=== PATIENT | male | born 1930 | race Caucasian/White ===

== ENCOUNTER 2021-04-10 07:58 | Observation (INO) | payer MEDICARE ==
[~2021-04-10] VITALS: Ht 175.3 cm; Wt 96.0 kg
[~2021-04-10 07:58] MED LIST: FLEXERIL PO; PERCOCET 5/321 COMBO PO
[2021-04-10 08:27] LABS: HEMATOCRIT 31.5 % (39.0-50.0); HEMOGLOBIN 10.5 g/dl (14.0-18.0); IMMATURE GRANULOCYTES 0.3 % (0.0-5.0); MEAN CELL VOLUME 99.4 fL CALC (80.0-100.0); MEAN CORPUSCULAR HGB 33.1 pG CALC (26.0-32.0); MEAN CORPUSCULAR HGB CONC 33.3 g/dL CAL (32.0-36.0); NEUT# 4.84 thou/uL (1.82-7.42); RED BLOOD COUNT 3.17 mill/uL (4.70-6.10); RED CELL DISTRI WIDTH 14.7 % (11.5-15.5)
[2021-04-10 08:40] LABS: ALBUMIN 3.8 g/dL (3.2-5.0); ALKALINE PHOSPHATASE 85 u/l (38-126); BILIRUBIN, TOTAL 1.3 mg/dL (0.0-1.4); BUN 24 mg/dL (8-23); BUN/CREATININE RATIO 37 (12-20 (CALC)); CHLORIDE 109 mmol/l (95-108); CREATININE 0.6 mg/dL (0.7-1.3); GFR > 60 ML/MIN (>=60 (CALC)); GFR FOR AFR.AMER. > 60 ML/MIN (>=60 (CALC)); MAGNESIUM 2.1 mg/dL (1.6-2.3); POTASSIUM 3.3 mmol/l (3.5-5.1); SGOT/AST 40 u/l (19-48); SODIUM 142 mmol/l (137-146); TOTAL PROTEIN 7.2 g/dL (6.3-8.2)
[2021-04-10 08:41] LABS: ANION GAP 13 (6-22 (CALC)); CARBON DIOXIDE 23 mmol/l (22-30)
[2021-04-10 09:00] LABS: INTERNATIONAL NORMALIZED RATIO 2.7 RATIO (0.7-1.3); PROTHROMBIN TIME 26.4 SECONDS (9.0-12.5)
[2021-04-10 09:34] LABS: URINE BILIRUBIN - DIPSTICK NEGATIVE (NEGATIVE); URINE BLOOD DIPSTICK NEGATIVE (NEGATIVE); URINE COLOR YELLOW; URINE GLUCOSE - DIPSTICK NEGATIVE (NEGATIVE); URINE KETONE TRACE mg/dL (NEGATIVE); URINE LEUK ESTERASE NEGATIVE (NEGATIVE); URINE PH 6.5 (4.5-8.0); URINE PROTEIN - DIPSTICK NEGATIVE (NEG-TRACE); URINE SPECIFIC GRAVITY 1.015
[2021-04-10 09:36] LABS: URINE NITRITE - DIPSTICK NEGATIVE (Negative)
[2021-04-10] MEDS ORDERED: MECLIZINE25 MG PO (11:20)
[2021-04-10] MEDS ORDERED: FUROSEMIDE20 MG PO (11:21)
[2021-04-10] MEDS ORDERED: OMEPRAZOLE DR20 MG PO (11:22)
[2021-04-10] MEDS ORDERED: NORVASC5 M1 PO (11:22)
[2021-04-10] MEDS ORDERED: WARFARIN5 MG PO (11:23)
[2021-04-10] MEDS ORDERED: K-TAB8 MEQ PO (11:24)
[2021-04-10] MEDS ORDERED: ACETAMINOP160 MG/5 M PO (11:26)
[2021-04-10 18:55] VITALS: BP 164/70
[2021-04-10 23:52] VITALS: BP 134/61
[2021-04-11 04:00] VITALS: BP 153/66
[2021-04-11 05:52] LABS: HEMATOCRIT 26.8 % (39.0-50.0); HEMOGLOBIN 8.7 g/dl (14.0-18.0); MEAN CELL VOLUME 102.3 fL CALC (80.0-100.0); MEAN CORPUSCULAR HGB 33.2 pG CALC (26.0-32.0); MEAN CORPUSCULAR HGB CONC 32.5 g/dL CAL (32.0-36.0); RED BLOOD COUNT 2.62 mill/uL (4.70-6.10); RED CELL DISTRI WIDTH 14.6 % (11.5-15.5)
[2021-04-11 06:01] LABS: ANION GAP 10 (6-22 (CALC)); BUN 18 mg/dL (8-23); BUN/CREATININE RATIO 29 (12-20 (CALC)); CALCULATED LDLCHOLESTEROL 67 mg/dL (62-129 (CALC)); CARBON DIOXIDE 24 mmol/l (22-30); CHLORIDE 112 mmol/l (95-108); CHOLESTEROL HDL RATIO 3.8 (<4.4 (CALC)); CREATININE 0.6 mg/dL (0.7-1.3); GFR > 60 ML/MIN (>=60 (CALC)); GFR FOR AFR.AMER. > 60 ML/MIN (>=60 (CALC)); HDL CHOLESTEROL 29 mg/dL (>=40); MAGNESIUM 2.2 mg/dL (1.6-2.3); POTASSIUM 3.3 mmol/l (3.5-5.1); SODIUM 142 mmol/l (137-146); TOTAL CHOLESTEROL 111 mg/dl (0-199); TOTAL TRIGLYCERIDES 73 mg/dl (30-149); VLDL CHOLESTROL 15 mg/dl (0-38 (CALC))
[2021-04-11 07:24] VITALS: BP 170/69
[2021-04-11 10:10] VITALS: BP 131/58
[2021-04-11 14:41] VITALS: BP 158/63
[2021-04-11 19:19] VITALS: BP 165/66
[2021-04-12 00:31] VITALS: BP 147/61
[2021-04-12 04:49] VITALS: BP 148/53
[2021-04-12 06:01] LABS: ANION GAP 9 (6-22 (CALC)); BUN 15 mg/dL (8-23); BUN/CREATININE RATIO 23 (12-20 (CALC)); CARBON DIOXIDE 26 mmol/l (22-30); CHLORIDE 108 mmol/l (95-108); CREATININE 0.6 mg/dL (0.7-1.3); GFR > 60 ML/MIN (>=60 (CALC)); GFR FOR AFR.AMER. > 60 ML/MIN (>=60 (CALC)); POTASSIUM 2.8 mmol/l (3.5-5.1); SODIUM 140 mmol/l (137-146)
[2021-04-12 06:07] LABS: PROTHROMBIN TIME 19.3 SECONDS (9.0-12.5)
[2021-04-12 06:29] LABS: HEMATOCRIT 28.1 % (39.0-50.0); HEMOGLOBIN 9.5 g/dl (14.0-18.0); MEAN CELL VOLUME 101.1 fL CALC (80.0-100.0); MEAN CORPUSCULAR HGB 34.2 pG CALC (26.0-32.0); MEAN CORPUSCULAR HGB CONC 33.8 g/dL CAL (32.0-36.0); RED BLOOD COUNT 2.78 mill/uL (4.70-6.10); RED CELL DISTRI WIDTH 14.3 % (11.5-15.5)
[2021-04-12 06:37] LABS: INTERNATIONAL NORMALIZED RATIO 1.9 RATIO (0.7-1.3)
[2021-04-12 07:52] VITALS: BP 154/65
[2021-04-12 10:30] VITALS: BP 156/62
[2021-04-12] MEDS ORDERED: WARFARIN3 MG PO (11:35)
[2021-04-12] MEDS ORDERED: OMEPRAZOLE DR20 MG PO (13:16)
== END 2021-04-12 15:02 | disposition home health service (06) ==
LOC: ED 07:58 → ED-I 10:00 → ED 10:22 → ED-I 10:23 → MS2 10:23
PROVIDERS: Family Medicine; Nurse Practitioner; ADMIT Hospitalist; ATTEND Hospitalist
PROC: 0T9B70Z Drainage of Bladder with Drainage Device, Via Natural or Artificial Opening (ICD-10-PCS; principal; 2021-04-10)
DX: G45.9 Transient cerebral ischemic attack, unspecified (principal); I67.1 Cerebral aneurysm, nonruptured; R19.5 Other fecal abnormalities; E87.6 Hypokalemia; I10 Essential (primary) hypertension; I48.91 Unspecified atrial fibrillation; M17.11 Unilateral primary osteoarthritis, right knee; E78.5 Hyperlipidemia, unspecified; K21.9 Gastro-esophageal reflux disease without esophagitis; Z60.2 Problems related to living alone; Z79.01 Long term (current) use of anticoagulants; Z20.822 Contact with and (suspected) exposure to COVID-19
CPT/HCPCS: G0378; Q9967

== ENCOUNTER 2021-10-16 16:49 | Emergency (ER) | payer MEDICARE ==
[~2021-10-16] VITALS: Ht 175.3 cm; Wt 97.0 kg
[~2021-10-16 16:49] MED LIST changes: +ACETAMINOP160 MG/5 M PO; +FUROSEMIDE20 MG PO; +K-TAB8 MEQ PO; +MECLIZINE25 MG PO; +NORVASC5 M1 PO; +OMEPRAZOLE DR20 MG PO; +WARFARIN3 MG PO; +WARFARIN5 MG PO
[2021-10-16 17:48] LABS: HEMATOCRIT 35.6 % (39.0-50.0); HEMOGLOBIN 11.8 g/dl (14.0-18.0); IMMATURE GRANULOCYTES 1.1 % (0.0-5.0); MEAN CELL VOLUME 98.9 fL CALC (80.0-100.0); MEAN CORPUSCULAR HGB 32.8 pG CALC (26.0-32.0); MEAN CORPUSCULAR HGB CONC 33.1 g/dL CAL (32.0-36.0); NEUT# 1.62 thou/uL (1.82-7.42); RED BLOOD COUNT 3.6 mill/uL (4.70-6.10); RED CELL DISTRI WIDTH 14.9 % (11.5-15.5)
[2021-10-16 18:10] LABS: ACT PARTIAL THROMBO TIME 34.1 SECONDS (20.0-32.5); INTERNATIONAL NORMALIZED RATIO 1.8 RATIO (0.7-1.3); PROTHROMBIN TIME 18.2 SECONDS (9.0-12.5)
[2021-10-16 18:11] LABS: ALBUMIN 3.4 g/dL (3.2-5.0); ALKALINE PHOSPHATASE 165 u/l (38-126); ANION GAP 12 (6-22 (CALC)); BILIRUBIN, TOTAL 1.1 mg/dL (0.0-1.4); BUN 14 mg/dL (8-23); BUN/CREATININE RATIO 14 (12-20 (CALC)); CARBON DIOXIDE 25 mmol/l (22-30); CHLORIDE 100 mmol/l (95-108); GFR > 60 ML/MIN (>=60 (CALC)); GFR FOR AFR.AMER. > 60 ML/MIN (>=60 (CALC)); LIPASE 144 u/l (23-300); POTASSIUM 3.9 mmol/l (3.5-5.1); SGOT/AST 38 u/l (19-48); SODIUM 132 mmol/l (137-146); TOTAL PROTEIN 6.9 g/dL (6.3-8.2)
[2021-10-16 18:15] VITALS: BP 168/77
== END 2021-10-16 18:16 | disposition short-term general hospital (02) ==
LOC: ED 16:49
DX: S20.213A Contusion of bilateral front wall of thorax, initial encounter (principal); S30.1XXA Contusion of abdominal wall, initial encounter; S61.412A Laceration without foreign body of left hand, initial encounter; S61.411A Laceration without foreign body of right hand, initial encounter; S51.812A Laceration without foreign body of left forearm, initial encounter; S51.811A Laceration without foreign body of right forearm, initial encounter; I10 Essential (primary) hypertension; I48.91 Unspecified atrial fibrillation; V86.59XA Driver of other special all-terrain or other off-road motor vehicle injured in nontraffic accident, initial encounter; Z85.038 Personal history of other malignant neoplasm of large intestine; Z92.21 Personal history of antineoplastic chemotherapy; Z79.01 Long term (current) use of anticoagulants